=== PATIENT | male | born 1985 | race Caucasian/White ===

== ENCOUNTER 2017-01-19 22:33 | Emergency (ER) ==
[2017-01-19 22:36] VITALS: BP 118/79; TEMP 98.1; BMI 36.2
[2017-01-19] MEDS ORDERED: SODIUM CHLORIDE 1,000 ML IV STA (22:41)
[2017-01-19] MEDS ORDERED: DOXY-100 100 MG in SODIUM CHLORIDE 250 ML IV STA (22:42)
[2017-01-19] MEDS ORDERED: ZOFRAN 4 MG/2 ML IVP STA (22:42)
[2017-01-19] MEDS ORDERED: TORADOL IVP STA (22:43)
[2017-01-19 22:58] LABS: BASOPHILS # (AUTO) 0.1 K/uL (0-0.2); BASOPHILS % (AUTO) 0.8 % (0.0-3.0); EOSINOPHILS # (AUTO) 0.1 K/ul (0.0-0.7); EOSINOPHILS % (AUTO) 1.6 % (0.0-7.0); HEMATOCRIT 42.6 % (42.0-52.0); HEMOGLOBIN 14.8 g/dl (14.0-18.0); IMMATURE GRANULOCYTE % (AUTO) 0.5 % (0.0-5.0); LYMPHOCYTES # (AUTO) 2.6 K/uL (0.60-3.4); LYMPHOCYTES % (AUTO) 30.6 (10.0-50.0); MEAN CORPUSCULAR HEMOGLOBIN 30.1 pg (27.0-31.0); MEAN CORPUSCULAR HGB CONC 34.7 (31.8-35.4); MEAN CORPUSCULAR VOLUME 86.6 fl (80.0-94.0); MONOCYTES # (AUTO) 0.6 K/uL (0.4-2.0); MONOCYTES % (AUTO) 7.4 (0-10); NEUTROPHILS # (AUTO) 5.1 K/ul (2.0-6.9); NEUTROPHILS % (AUTO) 59.1; PLATELET COUNT 287 10^3/uL (140-440); RED BLOOD COUNT 4.92 10^6/ul (4.70-6.10); WHITE BLOOD COUNT 8.54 K/ul (4.2-10.2)
[2017-01-19 23:19] LABS: ALBUMIN 3.7 g/dL (3.4-5.0); ALBUMIN/GLOBULIN RATIO 1.16; ANION GAP 11.7; BILIRUBIN,TOTAL 1.3 mg/dL (0.00-1.20); BUN/CREATININE RATIO 17.04; CALCIUM 9.5 mg/dL (8.2-10.2); CREATININE 0.88 mg/dL (0.60-1.10); POTASSIUM 3.7 mmol/L (3.5-5.1); TOTAL PROTEIN 6.9 g/dL (6.4-8.2)
[2017-01-19 23:38] LABS: ERYTHROCYTE SEDIMENTATION RATE 10 mm/hr (0-15); ESR INTERNAL QC INTERNAL QC VALID
[2017-01-20 02:01] LABS: ADD URINE MICROSCOPIC NO; BILIRUBIN,URINE Negative (NEGATIVE); KETONES,URINE Negative (NEGATIVE); LEUKOCYTE ESTERASE ,URINE Negative (NEGATIVE); NITRITE,URINE Negative (NEGATIVE); PH,URINE 6.5 (5-9); PROTEIN,URINE Negative (NEGATIVE); URINE, BLOOD Negative (NEGATIVE)
--- NOTE | 2017-01-20 02:26 | ED.PDOC ---
General ED Provider: Dr. KENNY YANES-ER Chief Complaint: Bite Stated Complaint: every joint in my body hurts--im sure i have lyme dz Time Seen by Physician: 22:35 Mode of Arrival: Walk-In Information Source: Patient, Family Exam Limitations: No limitations Primary Care Provider: MAGGY HERCULES Nursing and Triage Documentation Reviewed and Agree: Yes Musculoskeletal Complaint Exam - Upper Extremity Complaint/Exam Location of Pain: Reports: Left, Shoulder, Wrist Mechanism of Injury: Reports: No known trauma Onset/Duration: several days Symptoms Are: Still present Timing: Intermittent Initial Severity: Mild Current Severity: Mild Location: Reports: Discrete Character: Reports: Dull, Aching, Stiffness Aggravating: Reports: Movement, Lifting, Flexion, Extension Alleviating: Reports: None Related History: Reports: Similar episode Non-Orthopedic Risk Factors: Reports: None DVT Risk Factors: Reports: None Septic Arthritis Risk Factors: Reports: None Related Surgical History: Reports: None Upper Extremity Findings: Present: Limited range of motion NV Bundle Intact Distal to Injury: Yes Compartment Syndrome Risk Factors: Present: Pain Differential Diagnoses: Other Review of Systems - Review Of Systems Constitutional: Reports: No symptoms Eyes: Reports: No symptoms Ears, Nose, Mouth, Throat: Reports: No symptoms Respiratory: Reports: No symptoms Cardiac: Reports: No symptoms GI: Reports: No symptoms : Reports: No symptoms Musculoskeletal: Reports: Joint pain, Muscle pain Skin: Reports: No symptoms Neurological: Reports: No symptoms Endocrine: Reports: No symptoms Hematologic/Lymphatic: Reports: No symptoms All Other Systems: Reviewed and Negative Past Medical History - Past Medical History Previously Healthy: Yes Endocrine: Reports: None Cardiovascular: Reports: None Respiratory: Reports: None Hematological: Reports: None Gastrointestinal: Reports: None Genitourinary: Reports: None Neuro/Psych: Reports: None Musculoskeletal: Reports: None Cancer: Reports: None - Surgical History General Surgical History: Reports: Orthopedic - Family History Family History: Reports: Unknown - Social History Smoking Status: Former smoker Hx Substance Use: No Alcohol Screening: Occasionally Lives: With family Physical Exam - Physical Exam Appearance: Well-appearing, No pain distress, Well-nourished Pain Distress: Mild Eyes: MARINA, EOMI, Conjunctiva clear ENT: Ears normal, Nose normal, Oropharynx normal Neck: Supple Respiratory: Airway patent, Breath sounds clear, Breath sounds equal, Respirations nonlabored Cardiovascular: RRR, Pulses normal, No rub, No murmur GI/: Soft, Nontender, No masses, Bowel sounds normal, No Organomegaly Musculoskeletal: Limited ROM Skin: Warm, Dry, Normal color Neurological: Sensation intact, Motor intact, Reflexes intact, Cranial nerves intact, Alert, Oriented Psychiatric: Affect appropriate, Mood appropriate Re-Evaluation - Re-Evaluation Time of Re-Evaluation: 02:26 Status: Improved Vital Signs Stable: Yes Pain Level: 1 Appearance: NAD Lungs: Clear Skin: Warm and Dry Neuro: Alert and Oriented X3 CV: RRR Critical Care Note - Critical Care Note Total Time (mins): 0 Course - Course Hematology/Chemistry: 01/19/17 22:52 01/19/17 22:52 Orders, Labs, Meds: Lab Review 01/19/17 01/20/17 22:52 01:50 WBC 8.54 RBC 4.92 Hgb 14.8 Hct 42.6 MCV 86.6 MCH 30.1 MCHC 34.7 RDW Coeff of John 12.6 Plt Count 287 Immature Gran % (Auto) 0.5 Neut % (Auto) 59.1 Lymph % (Auto) 30.6 Dawson % (Auto) 7.4 Eos % (Auto) 1.6 Baso % (Auto) 0.8 Immature Gran # (Auto) 0.0 Neut # 5.1 Lymph # 2.6 Dawson # 0.6 Eos # 0.1 Baso # 0.1 ESR 10 Sodium 139 Potassium 3.7 Chloride 106 Carbon Dioxide 25 Anion Gap 11.7 BUN 15 Creatinine 0.88 Estimated GFR (MDRD) 102.00 BUN/Creatinine Ratio 17.04 Glucose 116 H Calcium 9.5 Total Bilirubin 1.30 H AST 13 L ALT 24 Alkaline Phosphatase 80 Total Protein 6.9 Albumin 3.7 Globulin 3.2 Albumin/Globulin Ratio 1.16 Amylase 31 Lipase 26 Urine Color Yellow Urine Clarity Clear Urine pH 6.5 Ur Specific [place] >=1.030 Urine Protein Negative Urine Glucose (UA) Negative Urine Ketones Negative Urine Blood Negative Urine Nitrite Negative Urine Bilirubin Negative Urine Urobilinogen 0.2 Ur Leukocyte Esterase Negative Orders Category Date Time Status ED IV/MEDIPORT/POWERPORT .ONCE EMERGENCY 01/19/17 22:41 Active AMYLASE Stat LAB 01/19/17 22:52 Completed C-REACTIVE PROTEIN Stat LAB 01/19/17 22:52 Received CBC W/ AUTO DIFF Stat LAB 01/19/17 22:52 Completed COMPREHENSIVE METABOLIC PANEL Stat LAB 01/19/17 22:52 Completed ESR Stat LAB 01/19/17 22:52 Completed LIPASE Stat LAB 01/19/17 22:52 Completed LYME, WESTERN BLOT, SERUM Stat LAB 01/19/17 22:52 Received MOLECULAR GROUP A STREP Stat LAB 01/19/17 22:50 Results STREP SCREEN Stat LAB 01/19/17 22:50 Results URINALYSIS C & S IF INDICATED Stat LAB 01/19/17 22:41 Completed 0.9 % Sodium Chloride [Saline Flush] MEDS 01/19/17 22:41 Active 1 syr IVF PRN PRN Doxycycline Hyclate Inj [Doxy-100] 100 mg MEDS 01/19/17 22:42 Discontinued 0.9 % Sodium Chloride [Sodium Chloride] 250 ml IV ONCE Ketorolac Tromethamine [Toradol] MEDS 01/19/17 22:43 Discontinued 30 mg IVP ONCE STA Ondansetron HCl/Pf [Zofran 4 mg/2 ml] MEDS 01/19/17 22:42 Discontinued 4 mg IVP ONCE STA Sodium Chloride 0.9% [Sodium Chloride] 1,000 ml MEDS 01/19/17 22:41 Active IV 100 mls/hr Medications Generic Name Dose Route Start Last Admin Trade Name Freq PRN Reason Stop Dose Admin Sodium Chloride 1,000 mls @ 100 mls/hr 01/19/17 22:41 01/19/17 23:26 Sodium Chloride IV 01/20/17 08:40 100 mls/hr .Q10H STA Administration Sodium Chloride 1 syr 01/19/17 22:41 01/19/17 23:27 Saline Flush IVF 1 syr PRN PRN Administration To flush IV Discontinued Medications Generic Name Dose Route Start Last Admin Trade Name Freq PRN Reason Stop Dose Admin Doxycycline Hyclate 100 mg/ 250 mls @ 100 mls/hr 01/19/17 22:42 01/19/17 23: 27 Sodium Chloride IV 01/20/17 01:11 100 mls/hr ONCE STA Administration Ketorolac Tromethamine 30 mg 01/19/17 22:43 01/19/17 23:30 Toradol IVP 01/19/17 22:44 30 mg ONCE STA Administration Ondansetron HCl 4 mg 01/19/17 22:42 01/19/17 23:27 Zofran 4 Mg/2 Ml IVP 01/19/17 22:43 4 mg ONCE STA Administration Vital Signs: Temp Pulse Resp BP Pulse Ox 01/19/17 22:33 98.1 F 72 16 118/79 96 Departure - Departure Time of Disposition: 02:26 Disposition: HOME SELF-CARE Discharge Problem: Tick bite Qualifiers: Encounter type: initial encounter Qualifier Code: (W57.XXXA) Bitten or stung by nonvenomous insect and other nonvenomous arthropods, initial encounter Arthralgia Qualifiers: Joint pain location: unspecified Qualifier Code: (M25.50) Pain in unspecified joint Instructions: Tick Bite (ED) Condition: Good Pt referred to PMD for follow-up: Yes Additional Instructions: doxycycline 100mg bid x 7days--use motrin for joint pain--f/u with your pcp nex week to discuss test results Allergies/Adverse Reactions: Allergies cefaclor [From Ceclor] Adverse Reaction (Verified 01/19/17 22:36) Home Medications: Ambulatory Orders 1 [No Reported Medications] 01/07/16 Disposition Discussed With: Patient, Family
[2017-01-24 19:09] LABS: IGG P18 AB Present (.); IGG P23 AB Absent (.); IGG P28 AB Absent (.); IGG P30 AB Present (.); IGG P39 AB Absent (.); IGG P41 AB Present (.); IGG P45 AB Absent (.); IGG P58 AB Absent (.); IGG P66 AB Present (.); IGG P93 AB Absent (.); IGM P39 AB Absent (.); IGM P41 AB Present (.)
[2017-01-25 16:25] LABS: LYME IGG WB INTERP Negative (.); LYME IGM WB INTERP Negative (.)
== END 2017-01-20 02:28 | disposition home or self-care (01) ==
LOC: ED 22:33
DX: M25.50 Pain in unspecified joint (principal); T14.8 Other injury of unspecified body region; W57.XXXA Bitten or stung by nonvenomous insect and other nonvenomous arthropods, initial encounter
CPT/HCPCS: 36415; 80053; 81001; 82150; 83690; 85025; 85651; 86140; 86617; 87651; 87880; 96365; 96366; 96375; 99284